=== PATIENT | male | born 1955 | race Two or more races ===

== ENCOUNTER → 2025-06-17 | Outpatient (CLI) | payer MEDICARE, SELFPAY ==
--- NOTE | 2025-06-17 | XR_ITS ---
Examination: Knee, left , 3 views Technique: Knee AP, lateral, oblique 3 views Date and time of exam: June 17, 2025, 1208 hours INDICATIONS: Left knee pain months. FINDINGS: Advanced narrowing medial joint space left knee Significant osteoarthritis left patellofemoral joint. No fracture. Moderate osteopenia. IMPRESSION: Advanced narrowing medial joint space left knee Significant osteoarthritis left patellofemoral joint.
== END | disposition home or self-care (01) ==
PROVIDERS: PCP Orthopaedic Surgery; Referring Provider Orthopaedic Surgery; Visit Provider Orthopaedic Surgery
DX: M17.12 Unilateral primary osteoarthritis, left knee (principal); M25.862 Other specified joint disorders, left knee
CPT/HCPCS: 73562